=== PATIENT | female | born 1985 | race African-American/Black ===

== ENCOUNTER 2016-09-05 07:02 | Inpatient (IN) ==
[2016-09-05] MEDS ORDERED: OXYTOCIN/LR 20 UNIT/1,000 ML BAG IV ONE ×2 (07:18→09:01)
[2016-09-05] MEDS ORDERED: LACTATED RINGERS 1,000 ML IV ONE (07:29)
[2016-09-05] MEDS ORDERED: BUTORPHANOL 1 MG/ML VIAL IV PRN (07:29)
[2016-09-05] MEDS ORDERED: MEPERIDINE 50 MG/1 ML VIAL IM PRN (07:29)
[2016-09-05] MEDS ORDERED: ONDANSETRON 4 MG/2 ML VIAL IV PRN ×2 (07:29→09:01)
[2016-09-05] MEDS ORDERED: LACTATED RINGERS 1,000 ML IV SCH (07:30)
[2016-09-05 07:53] LABS: Basophils % 0.1 % (0.0-0.8); Eosinophils % 0.6 % (0.00-10.9); Hematocrit 33.5 VOL% (35.7-47.0); Hemoglobin 10.7 GM/DL (12.0-16.0); Immature Granulocytes % 0.7 %; Immature Granulocytes Absolute 0.05 #; Lymphocytes # 2.6 10*3/uL (1.4-4.0); Lymphocytes % 36.2 % (21.3-54.2); Mean Corpuscular HGB Conc 31.9 GM/DL (32-36); Mean Corpuscular Hemoglobin 25 PG (27-34); Mean Corpuscular Volume 78.1 FL (87-102); Mean Platelet Volume 10.6 FL (9.6-12.0); Monocytes # 0.9 10*3/uL (0.11-0.8); Monocytes % 12.8 % (1.7-12.7); NRBC # 0.02 10*3/uL; Neutrophils # 3.5 10*3/uL (1.4-7.4); Neutrophils % 49.6 % (38.7-73.9); Platelet Count 176 T/CUMM (130-400); Red Blood Count 4.29 MC/CUMM (3.8-5.5); Red Cell Distribution Width 18.6 % (9.3-17.3); White Blood Count 7.1 T/CUMM (4-12)
[2016-09-05 08:25] LABS: Alanine Aminotransferase 10 U/L (13-56); Albumin 2.7 G/DL (3.4-5.0); Alkaline Phosphatase 140 U/L (45-117); Aspartate Amino Transferase 19 U/L (0-37); Bilirubin,Total < 0.39 MG/DL (0.2-1.0); Blood Urea Nitrogen 5 MG/DL (7-18); Calcium 8.7 MG/DL (8.5-10.1); Glucose 94 MG/DL (74-106); Osmolality,Calculated 273.5 MOS/KG (273-304); Sodium 139 MMOL/L (136-145); Total Protein 6.4 G/DL (6.4-8.3)
--- NOTE | 2016-09-05 08:54 | OB/GYN History & Physical ---
History of Present Illness Chief complaint: Labor History of present illness: Ms. Gaytan is a 31 year old female who presented to L&D this morning at ~0715 completely dilated. No complications with this . Denies PmHx or Surg Hx. Home Medications Medication Instructions Recorded Confirmed Type Vit 108/Iron/Folic AC 1 tablet PO DAILY 09/05/16 09/05/16 History [ One Tablet] Allergies Allergy/AdvReac Type Severity Reaction Status Date / Time No Known Allergies Allergy Verified 09/05/16 07:28 Medical,Surgical,& Family Hx - Medical History Reproductive: No history of: Ectopic , Complication - Surgical History Reproductive Surgeries: Patient denies;: Section - Family History Family History: Reports;: Family Cancer (GRANDMOTHER REBNAL), Family Diabetes ( DADDY), Family Heart Disease - Social History Smoking Status: Never smoker Frequency of Alcohol Use: None 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 - Constitutional Vitals: Vital Signs Temp Pulse Resp BP 09/05/16 08:00 97.8 F 90 24 147/69 General appearance: mild distress, morbidly obese - Head Head exam: Present: normal inspection, normocephalic - Eye Eye exam: Present: EOMI - Respiratory Respiratory exam: Present: clear to auscultation bilaterally - Cardiovascular Cardiovascular exam: Present: regular rate and rhythm - GI/Abdominal GI/Abdominal exam: Present: soft, other (Regular contractions, FHTs reassuring) Assessment and Plan (1) 38 weeks gestation of Status: Acute Current Visit: Yes (2) Active labor at term Status: Acute Assessment and plan: Anticipate Current Visit: Yes (3) Morbid (severe) obesity due to excess calories Status: Acute Current Visit: Yes Results - Labs CBC & BMP: 09/05/16 07:20 09/05/16 07:20 Quality Measures - VTE Contraindication to Pharmacological VTE Prophylaxis: Clinical assessment deems Pt at low risk, no prophalaxis needed
[2016-09-05 08:59] LABS: Apearance,Urine CLEAR (Clear); Bilirubin,Urine Negative (Negative); Blood, Urine Small mg/dL (Negative); Glucose,Urine (UA) Negative (Negative); Ketones,Urine Negative (Negative); Mucus,Urine Occasional /LPF (Occasional); Nitrite,Urine Negative (Negative); Protein,Urine Negative; RBC,Urine 37 /HPF (0-4); Squamous Epithelial Cell,Urine Occasional /HPF (0-10); Urine Color Yellow (Yellow); Urine Specific Gravity 1.013 (1.001-1.035); Urine Urobilinogen < 2.0 EU/DL (0.2-1.0); WBC,Urine 1 /HPF (0-6)
--- NOTE | 2016-09-05 09:00 | Event Note ---
DELIVERY NOTE of a male in the KERA position over intact perineum. No anesthesia, patient arrived completely dilated 8 lbs 5 oz with APGARS of 9/9 Spontaneous delivery of intact placenta. EBL 300 cc. NICU present for delivery. Mom and Baby doing well.
[2016-09-05] MEDS ORDERED: MEASLES/MUMPS/RUBELLA VACCINE 0.5 ML VIAL SUBCUT ONE (09:01)
[2016-09-05] MEDS ORDERED: ACETAMINOPHEN 325 MG TABLET PO PRN (09:01)
[2016-09-05] MEDS ORDERED: HYDROCORTISONE 2.5% RECTAL CREAM 30 GM TUBE TOP PRN (09:01)
[2016-09-05] MEDS ORDERED: DIPH/TET/ACEL PERT BOOSTER VACCINE 0.5 ML VIAL IM ONE (09:01)
[2016-09-05] MEDS ORDERED: BISACODYL 10 MG SUPP RECTAL PRN (09:01)
[2016-09-05] MEDS ORDERED: LANOLIN 50% CREAM 0.3 OZ TUBE TOP PRN (09:01)
[2016-09-05] MEDS ORDERED: BENZOCAINE 20%/MENTHOL 0.5% SPRAY 56 GM CAN TOP PRN (09:01)
[2016-09-05] MEDS ORDERED: RHO(D) IMMUNE GLOBULIN 300 MCG SYRINGE IM ONE (09:01)
[2016-09-05] MEDS ORDERED: WITCH HAZEL PADS 100/JAR TOP PRN (09:01)
[2016-09-05] MEDS: IBUPROFEN 800 MG TABLET PO PRN (18:21)
[2016-09-05] MEDS: DOCUSATE SODIUM 100 MG CAPSULE PO SCH (20:13)
[2016-09-06 05:43] LABS: Basophils % 0.1 % (0.0-0.8); Eosinophils # 0.1 10*3/uL (0.0-0.87); Eosinophils % 0.8 % (0.00-10.9); Hematocrit 29.8 VOL% (35.7-47.0); Hemoglobin 9.2 GM/DL (12.0-16.0); Immature Granulocytes % 0.4 %; Immature Granulocytes Absolute 0.04 #; Lymphocytes # 2.8 10*3/uL (1.4-4.0); Mean Corpuscular HGB Conc 30.9 GM/DL (32-36); Mean Corpuscular Hemoglobin 25 PG (27-34); Mean Corpuscular Volume 79.9 FL (87-102); Mean Platelet Volume 11.3 FL (9.6-12.0); Monocytes % 10.6 % (1.7-12.7); Neutrophils # 5.3 10*3/uL (1.4-7.4); Neutrophils % 58.1 % (38.7-73.9); Platelet Count 161 T/CUMM (130-400); Red Blood Count 3.73 MC/CUMM (3.8-5.5); Red Cell Distribution Width 18.5 % (9.3-17.3); White Blood Count 9.2 T/CUMM (4-12)
[2016-09-06] MEDS: IBUPROFEN 800 MG TABLET PO PRN ×2 (09:35→14:49)
[2016-09-06] MEDS: DOCUSATE SODIUM 100 MG CAPSULE PO SCH ×2 (09:35→21:26)
--- NOTE | 2016-09-06 10:14 | OB/GYN Progress Note ---
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 Absent: tenderness Results - Labs CBC & BMP: 09/06/16 05:25 09/05/16 07:20
[2016-09-07 09:08] VITALS: BP 134/79
[2016-09-07] MEDS: DOCUSATE SODIUM 100 MG CAPSULE PO SCH (09:31)
--- NOTE | 2016-09-07 09:40 | Discharge Summary ---
Hospital Course - Hospital Course Hospital Course: routine . ready to go home Diagnosis - Discharge Diagnosis (1) 38 weeks gestation of Status: Acute (2) Active labor at term Status: Acute (3) Morbid (severe) obesity due to excess calories Status: Acute (4) Encounter for full-term uncomplicated delivery Status: Acute Specialty Discharge - Follow Up or Referrals Discharge Plan - Discharge Data Disposition: Disch To Home/Self Care Condition at Discharge: Stable Discharge Diet: advance to your usual diet, heart healthy Activity: other (routine ) Hygiene: may shower Weight Bearing at Discharge: full weight bearing Driving: no restrictions - Discharge Medications New Ibuprofen Tab [Motrin Tab] 800 mg PO Q6H PRN #30 tablet PRN Reason: Pain Moderate (4-7) No Action Vit 108/Iron/Folic AC [ One Tablet] 1 tablet PO DAILY - Follow Up or Referral - Forms/Instructions Instructions: Perineal Care (DC), Bleeding (DC) Exam - Constitutional Vitals: Period Temp Pulse Resp BP Sys/Mistry Pulse Ox Last 24 Hr 96.1 F-97.4 F 98-110 18-20 119-143/62-80 99-100 General appearance: normal weight, no acute distress - Head Head exam: Present: normal inspection, normocephalic - Eye Eye exam: Present: EOMI - GI/Abdominal GI/Abdominal exam: Present: soft. Absent: tenderness DS: Provider Date of admission: 09/05/16 07:30 Primary care physician: . No PCP Attending physician on admission: Mary Jo Cameron MD Consults: 09/05/16 09:01 Consult to Client Service Executive [CONS] Routine Consult Client Service Executive: Breast Feeding Discharging clinician: Mary Jo Cameron MD
== END 2016-09-07 11:00 | disposition home or self-care (01) | DRG 775 ==
LOC: N.LDOUT 07:02 → N.LD 07:07 → N.OB 10:38
PROVIDERS: ADMIT Obstetrics & Gynecology; ATTEND Obstetrics & Gynecology